=== PATIENT | female | born 1935 | race Hispanic/Latino ===

== ENCOUNTER 2019-09-06 05:52 | Day surgery (SDC) | payer OTHER ==
[~2019-09-06] VITALS: Ht 157.5 cm; Wt 50.5 kg
[~2019-09-06 05:52] MED LIST: ALEN70TA10 PO; ATOR40TA69 PO; CALC-190 PO; FISH1CAP49 PO; MULTIVITAM PO; TRIAMCINOLON
[2019-09-06 06:27] VITALS: BP 167/69
[2019-09-06] MEDS ORDERED: SODIUM CHLORIDE 0.9% 1000ML 1,000 ML IV ONE (06:28)
[2019-09-06] MEDS ORDERED: BIOT5000 PO (06:44)
[2019-09-06] MEDS ORDERED: LORA10CA PO (06:44)
[2019-09-06] MEDS ORDERED: LIDOCAINE HCL 1% 20 ML VIAL ONE (07:29)
[2019-09-06] MEDS ORDERED: PROPOFOL 10 MG/ML 20ML VIAL IV ONE (07:30)
[2019-09-06 07:52] VITALS: BP 102/32
[2019-09-06 07:57] VITALS: BP 100/43
[2019-09-06 08:02] VITALS: BP 116/63
[2019-09-06 08:07] VITALS: BP 136/62
== END 2019-09-06 08:23 | disposition home or self-care (01) ==
LOC: DAH 05:52 → ENDO 05:52
PROVIDERS: ATTEND Internal Medicine Gastroenterology
DX: R19.4 Change in bowel habit (principal); D12.2 Benign neoplasm of ascending colon; D12.3 Benign neoplasm of transverse colon; K57.30 Diverticulosis of large intestine without perforation or abscess without bleeding; E78.2 Mixed hyperlipidemia; M81.0 Age-related osteoporosis without current pathological fracture; M19.90 Unspecified osteoarthritis, unspecified site; Z90.710 Acquired absence of both cervix and uterus; Z98.49 Cataract extraction status, unspecified eye; Z79.899 Other long term (current) drug therapy; Z98.890 Other specified postprocedural states
CPT/HCPCS: 45380; 45385; 88305; A4215; A4221; A4222; A4223; A4606; A4615; A4663; J2704; J7030